=== PATIENT | male | born 1950 | race Caucasian/White ===

== ENCOUNTER 2019-09-21 19:22 | Inpatient (IN) | payer MEDICARE, OTHER ==
[~2019-09-21] VITALS: Ht 188 cm; Wt 87.1 kg
--- NOTE | 2019-09-21 19:33 | NUR ---
PT CAME TO THE ED C/O L SIDED CHEST PAIN NON RADIATING STARTED YESTERDAY MORNING. WORSENS WHEN SITTING UP. 10/23 PS. PT AAOX4, RR EVEN AND UNLABORED ON RA W NAD NOTED. PT CONNECTED TO THE LORRY WEIGHER AND POX.
[2019-09-21] MEDS ORDERED: ASPIRIN 325 MG TABLET ONE (19:57)
[2019-09-21] MEDS ORDERED: IV NS 0.9% 1,000 ML BAG IV ONE (20:00)
[2019-09-21] MEDS ORDERED: ASPIRIN 325 MG TABLET PO ONE (20:00)
--- NOTE | 2019-09-21 20:10 | NUR ---
XRAY IN PROGRESS AT BEDSIDE
[2019-09-21 20:16] LABS: BASOPHILS # (AUTO) 0.1 /CMM (0.0-0.2); BASOPHILS % (AUTO) 0.6 % (0.0-2.0); EOSINOPHILS % (AUTO) 1.8 % (0.0-6.0); HEMATOCRIT 41 % (39-51); HEMOGLOBIN 13.5 g/dL (13.5-17.5); LYMPHOCYTES # (AUTO) 2.6 /CMM (0.8-4.8); LYMPHOCYTES % (AUTO) 22.2 % (20.0-44.0); MEAN CORPUSCULAR HGB CONC 33 g/dl (31.0-36.0); MEAN CORPUSCULAR VOLUME 85 fL (80-96); MONOCYTES # (AUTO) 0.8 /CMM (0.1-1.30); MONOCYTES % (AUTO) 7.4 % (2.0-12.0); NEUTROPHILS # (AUTO) 7.9 /CMM (1.8-8.9); PLATELET COUNT (AUTO) 189 /CMM (150-450); RED BLOOD CELL COUNT(AUTO) 4.79 MIL/uL (4.5-6.0); WHITE BLOOD COUNT (AUTO) 11.6 K/uL (4.3-11.0)
[2019-09-21 20:25] LABS: CALCIUM, SERUM 8.6 mg/dL (8.5-10.1); CARBON DIOXIDE 26 mmol/L (21-32); CHLORIDE 104 mmol/L (98-107); CREATININE 0.9 mg/dL (0.6-1.3); GLUCOSE 94 mg/dL (74-106); SODIUM SERUM 138 mmol/L (136-145); UREA NITROGEN, BLOOD 14 mg/dL (7-18)
[2019-09-21] MEDS ORDERED: METF-440 PO (20:39)
[2019-09-21] MEDS ORDERED: METO-357 PO (20:41)
[2019-09-21] MEDS ORDERED: ATOR80TA PO (20:42)
[2019-09-21] MEDS ORDERED: LISI-607 PO (20:43)
[2019-09-21] MEDS ORDERED: ASPI-605 PO (20:43)
--- NOTE | 2019-09-21 20:48 | NUR ---
REPORT GIVEN TO KWESI MCGINNIS
--- NOTE | 2019-09-21 21:16 | NUR ---
ER TALKING TO CINDI PERDUE REGARDING PT ADMISSION.
--- NOTE | 2019-09-21 21:18 | NUR ---
DENIES CHEST PAIN AT THIS TIME. NO ACUTE DISTRESS NOTED
--- NOTE | 2019-09-21 21:26 | NUR ---
CINDI PERDUE AT BEDSIDE TO BAO TELLO.
--- NOTE | 2019-09-21 21:38 | NUR ---
PT TRANSFERRED TO ROOM IN STABLE CONDITION VIA ACLS PROTOCOL
[2019-09-21 21:40] VITALS: BP 120/70
[2019-09-21 21:45] VITALS: BP 120/70
--- NOTE | 2019-09-21 21:45 | NUR ---
OBSTETRICS SPECIALIST NOTES PATIENT ARRIVED ON FLOOR AT 2145. PATIENT AMBULATED TO BED, ALERT AND ORIENTED X 4. BREATHING EVEN AND UNLABORED ON ROOM AIR. SHOWS NO SIGNS OF ACUTE RESPIRATORY DISTRESS, NO ACUTE PAIN. TELE MONITOR SHOWS SR ON 60/S IV ON LEFT HAND 20G IS CLEAN DRY AND INTACT. SHOWS NO SIGNS OF INFILTRATION NO REDNESS. SKIN ASSESSMENT AND BELONGINGS CHECKLIST COMPLETED. VALUABLES PUT INTO LOCKER WITH NURSING SUPERVISION. ORIENTED TO FLOOR AND STAFF. SAFETY PRECAUTIONS IN PLACE. BED IN LOWEST POSITION, LOCKED, AND CALL LIGHT KEPT WITHIN REACH. WILL CONTINUE TO MONITOR.
[2019-09-21] MEDS ORDERED: ONDANSETRON HCL/PF 4 MG/2 ML VIAL IVP PRN (22:30)
[2019-09-21] MEDS ORDERED: MAG HYDROX/AL HYDROX/SIMETH 30 ML UDC PO PRN (22:30)
[2019-09-21] MEDS ORDERED: MAGNESIUM HYDROXIDE 30 ML UDC PO PRN (22:30)
[2019-09-21] MEDS ORDERED: DEXTROSE 50%-WATER 50 ML DISP.SYRIN IV PRN (22:30)
[2019-09-21] MEDS ORDERED: ACETAMINOPHEN 325 MG TABLET PO PRN (22:30)
[2019-09-21] MEDS ORDERED: Z GUARD REMEDY 2 OZ OINT TP PRN (22:30)
[2019-09-21] MEDS ORDERED: INSULIN REGULAR, HUMAN 100 UNIT/ML 3 ML VIAL SQ PRN (22:30)
[2019-09-21] MEDS ORDERED: HYDROCODONE/APAP 5/325MG 1 EACH TABLET PO PRN (22:30)
[2019-09-21] MEDS ORDERED: ENOXAPARIN SODIUM 40 MG/0.4 ML DISP.SYRIN SQ SCH (23:00)
[2019-09-22] VITALS: BP 109/64
[2019-09-22 04:00] VITALS: BP 119/62
[2019-09-22] MEDS: BLOOD SUGAR DIAGNOSTIC 1 EACH STRIP IN SCH ×3 (06:40→18:03)
--- NOTE | 2019-09-22 06:41 | NUR ---
TOWBOAT CAPTAIN NOTES PATIENT IN BED, ALERT AND ORIENTED X 4. BREATHING EVEN AND UNLABORED ON ROOM AIR. SHOWS NO SIGNS OF ACUTE RESPIRATORY DISTRESS, NO ACUTE PAIN. TELE MONITOR SHOWS SR 57HR. IV LEFT HAND 20G IS CLEAN DRY AND INTACT. SHOWS NO SIGNS OF INFILTRATION NO REDNESS. ALL DUE MEDICATIONS GIVEN. HOME MEDICATIONS AT BEDSIDE, PT STATES ROOMMATE WILL TAKE HOME MEDICATIONS TODAY. SAFETY PRECAUTIONS IN PLACE. BED IN LOWEST POSITION, LOCKED, AND CALL LIGHT KEPT WITHIN REACH. WILL ENDORSE TO ONCOMING NURSE.
[2019-09-22 07:07] LABS: CALCIUM, SERUM 8.7 mg/dL (8.5-10.1); CREATININE 0.9 mg/dL (0.6-1.3); MAGNESIUM 1.9 mg/dL (1.8-2.4); PHOSPHORUS 3.9 mg/dL (2.5-4.9); POTASSIUM 4.3 mmol/L (3.5-5.1)
[2019-09-22 07:09] LABS: BASOPHILS # (AUTO) 0.1 /CMM (0.0-0.2); BASOPHILS % (AUTO) 0.8 % (0.0-2.0); EOSINOPHILS % (AUTO) 2.3 % (0.0-6.0); HEMATOCRIT 40 % (39-51); HEMOGLOBIN 14.1 g/dL (13.5-17.5); LYMPHOCYTES % (AUTO) 28.8 % (20.0-44.0); MEAN CORPUSCULAR HGB CONC 35 g/dl (31.0-36.0); MEAN CORPUSCULAR VOLUME 83 fL (80-96); MONOCYTES # (AUTO) 0.6 /CMM (0.1-1.30); NEUTROPHILS # (AUTO) 4.2 /CMM (1.8-8.9); NEUTROPHILS % (AUTO) 60.1 % (43.0-81.0); PLATELET COUNT (AUTO) 169 /CMM (150-450); RED BLOOD CELL COUNT(AUTO) 4.87 MIL/uL (4.5-6.0)
[2019-09-22 07:15] LABS: THYROID STIMULATING HORMONE 2.947 uIU/mL (0.358-3.74)
--- NOTE | 2019-09-22 07:30 | NUR ---
MS/RN Opening Note Patient received AO x 4, able to responds all stimuli. Pt denies pain or nay discomfort, skin is warm to touch, kept clean/dry, intact IV site. Respiratory even and unlabored with room air. Keep lower position of the bed with locked wheel for safety. Call light within reach, will continue to monitor.
[2019-09-22 08:00] VITALS: BP 137/75
[2019-09-22] MEDS: METOPROLOL SUCCINATE 50 MG TAB.SR.24H PO SCH ×2 (09:00→16:16)
[2019-09-22] MEDS ORDERED: ASPIRIN EC 81 MG TABLET.DR PO SCH (09:00)
[2019-09-22] MEDS: ASPIRIN 81 MG TAB.CHEW PO SCH ×2 (09:00→16:16)
[2019-09-22] MEDS: ATORVASTATIN 40 MG TABLET PO SCH ×2 (09:00→16:15)
[2019-09-22] MEDS ORDERED: LISINOPRIL (5MG) 5 MG TABLET PO SCH (09:00)
[2019-09-22] MEDS ORDERED: IOHEXOL-350 100 ML VIAL IV ONE ×2 (12:36→13:14)
[2019-09-22] MEDS ORDERED: CT SWABBABLE VALVE TRANS SET 1 EA INFUS.SET MC ONE (12:37)
[2019-09-22] MEDS ORDERED: IV NS 0.9% 250 ML IV ONE (12:37)
[2019-09-22] MEDS ORDERED: NITROGLYCERIN 0.4 MG/TAB BOTTLE ONE (12:51)
[2019-09-22] MEDS ORDERED: METOPROLOL TARTRATE INJ 5 MG/5 ML AMPUL ONE (12:52)
[2019-09-22] MEDS ORDERED: METOPROLOL TARTRATE INJ 5 MG/5 ML AMPUL IVP PRN (13:00)
[2019-09-22] MEDS ORDERED: NITROGLYCERIN 0.4 MG/TAB BOTTLE SL ONE (13:00)
--- NOTE | 2019-09-22 13:30 | NUR ---
report given to edgar rain pt given x2 of IV Contrast during CTA. hold metformin for 48hrs pt awake alert oriented vital sign stable during and after CTA.
[2019-09-22 16:00] VITALS: BP 138/82
--- NOTE | 2019-09-22 18:50 | NUR ---
MS/RN Closing Note Patient in bed comfortably, does no c/o pain or discomfort. Skin is warm to touch, clean/dry. Respiratory even and unlabored with room air. Kept remain low position of the bed with locked wheel. Call light within reach, will endorse date night caregiver.
--- NOTE | 2019-09-22 19:20 | NUR ---
MS RN OPENING NOTES PATIENT AWAKE AND RESTING IN BED COMFORTABLY. A/OX4. ON ROOM AIR. DENIES ANY SOB OR CHEST PAIN AT THIS TIME. IV PRESENT ON LEFT AC, SIZE 18, INTACT & PATENT, HEP LOCKED. DAY SHIFT NURSE ENDORSED PATIENT DISCHARGE. PATIENT STATES THAT HE HAS AVAILABLE TRANSPORTATION FOR DISCHARGE. SAFETY MEASURES IN PLACE. BED LOCKED, SIDE RAILS X2, CALL LIGHT WITHIN REACH. WILL CONTINUE TO MONITOR.
[2019-09-22 20:00] VITALS: BP 129/65
--- NOTE | 2019-09-22 21:37 | NUR ---
MS PHYSICAL DESIGN ENGINEER NOTES PATIENT DISCHARGED HOME IN STABLE CONDITION. A/OX4. ON ROOM AIR. DENIES SOB OR CHEST PAIN. DISCHARGE INSTRUCTIONS GIVEN TO PATIENT AND SIGNED; PATIENT VERBALIZED UNDERSTANDING OF INSTRUCTIONS. BELONGINGS (I.E. 2 WALLETS) RETRIEVED FROM THE NURSING ATHLETIC FIELD CUSTODIAN OFFICE/SAFE AND RETURNED TO PATIENT AT THE BEDSIDE. PATIENT CONFIRMED ALL BELONGINGS ARE RETURNED AND SIGNED BELONGINGS LIST. IV ON LEFT HAND REMOVED. ID BAND REMOVED. VITAL SIGNS- BP: 129/65 HR: 63 RR: 18 TEMP: 98.6 SPO2: 98. PATIENT ESCORTED TO [facility]. TRANSPORTATION HOME PROVIDED BY FRIENDJESS .
== END 2019-09-22 21:37 | disposition home or self-care (01) | DRG 303 ==
LOC: ER 19:25 → TELE 20:18 → MED 09-22 10:44
PROVIDERS: ADMIT Nurse Practitioner Acute Care; ATTEND Nurse Practitioner Acute Care
DX: I25.10 Atherosclerotic heart disease of native coronary artery without angina pectoris (principal); E11.9 Type 2 diabetes mellitus without complications; E78.5 Hyperlipidemia, unspecified; D72.829 Elevated white blood cell count, unspecified; I10 Essential (primary) hypertension; I25.2 Old myocardial infarction; E86.0 Dehydration; Z95.1 Presence of aortocoronary bypass graft; Z95.5 Presence of coronary angioplasty implant and graft; Z79.82 Long term (current) use of aspirin; Z79.84 Long term (current) use of oral hypoglycemic drugs
CPT/HCPCS: 36415; 71045-TC; 75574; 80048-TC; 80061-TC; 82962-TC; 83735-TC; 84100-TC; 84443-TC; 84484-TC; 85025-TC; 87081-TC; 93307-TC; G0378; J1650; J1815; J3490; J7030; J7050; Q9967

== ENCOUNTER 2021-12-11 19:31 | Emergency (ER) | payer MEDICARE, BC ==
[~2021-12-11] VITALS: Ht 188 cm; Wt 90.7 kg
[~2021-12-11 19:31] MED LIST: ASPI-605 PO; ATOR80TA PO; LISI-768 PO; METO-357 PO
--- NOTE | 2021-12-11 19:45 | NUR ---
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 TOOK ASPIRIN 81 MG AT 1600. DENIES PAIN AT THIS TIME. PT A/OX4. TOLERATING R/A WELL WITH NO SOB. CONNECTED PT TO POX AND MONITOR.
--- NOTE | 2021-12-11 19:58 | NUR ---
RFA #18G S/L BLOOD COLLECTED AND SENT TO LAB. PT DENIES PAIN AT THIS TIME
--- NOTE | 2021-12-11 20:09 | NUR ---
COVID ANTIGEN SWAB COLLECTED AND SENT TO LAB
--- NOTE | 2021-12-11 20:09 | NUR ---
AIRCRAFT PARTS ASSEMBLER AT PT'S BEDSIDE
[2021-12-11 20:20] LABS: BASOPHILS # (AUTO) 0.1 K/uL (0.0-0.2); BASOPHILS % (AUTO) 0.9 % (0.0-2.0); HEMATOCRIT 38 % (39-51); HEMOGLOBIN 13.1 g/dL (13.5-17.5); LYMPHOCYTES # (AUTO) 0.5 K/uL (0.8-4.8); LYMPHOCYTES % (AUTO) 6.9 % (20.0-44.0); MEAN CORPUSCULAR HGB CONC 34 g/dl (31.0-36.0); MEAN CORPUSCULAR VOLUME 84 fL (80-96); MONOCYTES % (AUTO) 13.6 % (2.0-12.0); NEUTROPHILS # (AUTO) 5.6 K/uL (1.8-8.9); NEUTROPHILS % (AUTO) 76.6 % (43.0-81.0); PLATELET COUNT (AUTO) 156 K/uL (150-450); RED BLOOD CELL COUNT(AUTO) 4.53 MIL/uL (4.5-6.0); WHITE BLOOD COUNT (AUTO) 7.3 K/uL (4.3-11.0)
[2021-12-11 20:32] LABS: CALCIUM, SERUM 8.5 mg/dL (8.5-10.1); CARBON DIOXIDE 22 mmol/L (21-32); CHLORIDE 104 mmol/L (98-107); CREATININE 1.2 mg/dL (0.6-1.3); GLUCOSE 97 mg/dL (74-106); POTASSIUM 3.7 mmol/L (3.5-5.1); SODIUM SERUM 137 mmol/L (136-145); UREA NITROGEN, BLOOD 20 mg/dL (7-18)
--- NOTE | 2021-12-11 20:46 | NUR ---
COVID ANTIGEN POSITIVE; CONTACT DROPLET PRECAUTIONS IN PLACE. DR. RICK LUNA AWARE
[2021-12-11 23:42] VITALS: BP 145/86
--- NOTE | 2021-12-11 23:42 | NUR ---
IV removed. Catheter intact and site benign. Pressure and 4x4 applied to site. No bleeding noted.
--- NOTE | 2021-12-11 23:44 | NUR ---
Patient does not wish to proceed with medical care recommended by Dr. Gonzalez. Patient given information related to possible complications, up to and including , which could occur as a result of leaving the hospital at this time. Patient verbalizes understanding of risks involved due to leaving against medical advice. Patient has signed AMA form. IV removed. Catheter intact and site benign. Pressure and 4x4 applied to site. No bleeding noted.
== END 2021-12-12 00:39 | disposition left against medical advice (07) ==
LOC: ER 19:34
DX: R07.9 Chest pain, unspecified (principal); U07.1 COVID-19; I25.2 Old myocardial infarction; Z95.1 Presence of aortocoronary bypass graft; Z95.5 Presence of coronary angioplasty implant and graft; Z79.82 Long term (current) use of aspirin; Z79.899 Other long term (current) drug therapy
CPT/HCPCS: 36415; 71045-TC; 80048-TC; 84484-TC; 85025-TC; C9803

== ENCOUNTER 2022-10-18 10:58 | Emergency (ER) | payer BC, MEDICARE ==
[~2022-10-18] VITALS: Ht 188 cm; Wt 90.7 kg
--- NOTE | 2022-10-18 11:00 | NUR ---
RECEIVED PT 72 YRS MALE FROM HOME C/O CHEST PAIN SINCE LAST NIGHT AWAKE AND ALERT RESPIRATION SPONT AND EAST
--- NOTE | 2022-10-18 11:15 | NUR ---
SEEN BY DR. MANE
--- NOTE | 2022-10-18 11:30 | NUR ---
CHEST X RAY DONE AT BED SIDE
[2022-10-18 11:43] LABS: BASOPHILS % (AUTO) 0.5 % (0.0-2.0); EOSINOPHILS % (AUTO) 1.7 % (0.0-6.0); HEMATOCRIT 38 % (39-51); HEMOGLOBIN 12.8 g/dL (13.5-17.5); LYMPHOCYTES # (AUTO) 1.4 K/uL (0.8-4.8); LYMPHOCYTES % (AUTO) 15.7 % (20.0-44.0); MEAN CORPUSCULAR HGB CONC 34 g/dl (31.0-36.0); MEAN CORPUSCULAR VOLUME 83 fL (80-96); MONOCYTES # (AUTO) 0.7 K/uL (0.1-1.30); MONOCYTES % (AUTO) 7.5 % (2.0-12.0); NEUTROPHILS # (AUTO) 6.8 K/uL (1.8-8.9); NEUTROPHILS % (AUTO) 74.6 % (43.0-81.0); PLATELET COUNT (AUTO) 188 K/uL (150-450); RED BLOOD CELL COUNT(AUTO) 4.56 MIL/uL (4.5-6.0); WHITE BLOOD COUNT (AUTO) 9.1 K/uL (4.3-11.0)
[2022-10-18 12:15] LABS: CALCIUM, SERUM 8.7 mg/dL (8.5-10.1); CARBON DIOXIDE 29 mmol/L (21-32); CHLORIDE 106 mmol/L (98-107); CREATININE 1.1 mg/dL (0.6-1.3); GLUCOSE 163 mg/dL (74-106); POTASSIUM 4.9 mmol/L (3.5-5.1); SODIUM SERUM 140 mmol/L (136-145); UREA NITROGEN, BLOOD 14 mg/dL (7-18)
--- NOTE | 2022-10-18 12:20 | NUR ---
CHEST PAIN RESOLVE
--- NOTE | 2022-10-18 13:25 | NUR ---
VITAL SIGNS UPDATED.NO CHEST PAIN EKG NONITER SHOWNG NSR
--- NOTE | 2022-10-18 14:42 | NUR ---
Dineses chest pain at this time
--- NOTE | 2022-10-18 14:55 | NUR ---
IV removed. Catheter intact and site benign. Pressure and 4x4 applied to site. No bleeding noted.
--- NOTE | 2022-10-18 14:57 | NUR ---
Patient discharged to home in stable condition. Written and verbal after care instructions given. Patient verbalizes understanding of instruction.
[2022-10-18 15:17] VITALS: BP 128/71
== END 2022-10-18 15:18 | disposition home or self-care (01) ==
LOC: ER 11:06
DX: R19.7 Diarrhea, unspecified (principal); R07.89 Other chest pain; E11.9 Type 2 diabetes mellitus without complications; Z95.1 Presence of aortocoronary bypass graft; Z79.899 Other long term (current) drug therapy; Z79.82 Long term (current) use of aspirin
CPT/HCPCS: 36415; 71045-TC; 80048-TC; 84484-TC; 85025-TC

== ENCOUNTER 2023-05-30 05:13 | Emergency (ER) | payer MEDICARE, BC ==
[~2023-05-30] VITALS: Ht 185.4 cm; Wt 88.5 kg
[2023-05-30 05:35] VITALS: TEMP 98.2
[2023-05-30 06:16] LABS: BASOPHILS # (AUTO) 0.1 K/uL (0.0-0.2); BASOPHILS % (AUTO) 0.7 % (0.0-2.0); EOSINOPHILS # (AUTO) 0.3 K/uL (0.0-0.7); EOSINOPHILS % (AUTO) 3.3 % (0.0-6.0); HEMATOCRIT 37 % (39-51); HEMOGLOBIN 12.7 g/dL (13.5-17.5); LYMPHOCYTES # (AUTO) 1.1 K/uL (0.8-4.8); LYMPHOCYTES % (AUTO) 13.8 % (20.0-44.0); MEAN CORPUSCULAR HEMOGLOBIN 29 PG (26.0-33.0); MEAN CORPUSCULAR HGB CONC 34 g/dl (31.0-36.0); MEAN CORPUSCULAR VOLUME 84 fL (80-96); MONOCYTES # (AUTO) 0.6 K/uL (0.1-1.30); MONOCYTES % (AUTO) 8.5 % (2.0-12.0); NEUTROPHILS # (AUTO) 5.6 K/uL (1.8-8.9); NEUTROPHILS % (AUTO) 73.7 % (43.0-81.0); PLATELET COUNT (AUTO) 183 K/uL (150-450); RED BLOOD CELL COUNT(AUTO) 4.43 MIL/uL (4.5-6.0); WHITE BLOOD COUNT (AUTO) 7.6 K/uL (4.3-11.0)
[2023-05-30 06:33] LABS: CALCIUM, SERUM 8.5 mg/dL (8.5-10.1); CARBON DIOXIDE 21 mmol/L (21-32); CHLORIDE 106 mmol/L (98-107); CREATININE 0.9 mg/dL (0.6-1.3); GLUCOSE 138 mg/dL (74-106); POTASSIUM 4.5 mmol/L (3.5-5.1); SODIUM SERUM 136 mmol/L (136-145); UREA NITROGEN, BLOOD 15 mg/dL (7-18)
[2023-05-30 06:48] LABS: ALKALINE PHOSPHATASE 84 U/L (46-116); ASPARTATE AMINOTRANSFERASE 17 U/L (15-37); BILIRUBIN,DIRECT 0.2 mg/dL (0.0-0.2); BILIRUBIN,TOTAL 0.7 mg/dL (0.2-1.0); TOTAL PROTEIN, SERUM 6.4 g/dL (6.4-8.2)
[2023-05-30 06:49] LABS: NT-PRO BNP < 5 pg/mL (0-125)
[2023-05-30 07:06] LABS: ALANINE AMINOTRANSFERASE 15 U/L (12-78)
[2023-05-30 09:25] VITALS: BP 152/84; O2SAT 98
== END 2023-05-30 09:25 | disposition home or self-care (01) ==
LOC: ER 05:16
DX: R07.89 Other chest pain (principal); R06.02 Shortness of breath; I10 Essential (primary) hypertension; E78.5 Hyperlipidemia, unspecified; E11.9 Type 2 diabetes mellitus without complications; Z79.82 Long term (current) use of aspirin; Z98.890 Other specified postprocedural states; Z79.899 Other long term (current) drug therapy
CPT/HCPCS: 36415; 71045-TC; 80048-TC; 80076-TC; 83880; 84484-TC; 85025-TC